=== PATIENT | female | born 1970 | race American Indian/Alaskan Native ===

== ENCOUNTER 2019-03-07 13:24 | Emergency (ER) | payer OTHER ==
--- NOTE | 2019-03-07 14:09 | Event Note ---
ED Screening Note ED Screening Note: pt presents with generalized abd pain that began yesterday morning no N/V/D last BM two days ago no urinary sx PMHx HTN, asthma only allergy: shellfish no abdominal surgeries non smoker non drinker no drug use This initial assessment/diagnostic orders/clinical plan/treatment(s) is/are subject to change based on patients health status, clinical progression and re- assessment by fellow clinical providers in the ED. Further treatment and workup at subsequent clinical providers discretion. Patient/guardian urged not to elope from the ED as their condition may be serious if not clinically assessed and managed. Initial orders include: labs, UA, urine preg
[2019-03-07 14:12] VITALS: BP 130/86
[2019-03-07 14:41] LABS: HCG Qualitative,Urine Negative (Negative)
[2019-03-07 14:42] LABS: Bacteria,Urine 1+ /HPF (Negative); Bilirubin,Urine NEG (Negative); Blood,Urine NEG (Negative); Hyaline Casts,Urine 3 /LPF; Mucus,Urine 3+ /HPF; Protein,Urine <15 mg/dL mg/dL (Negative); Urobilinogen,Urine < 2.0 mg/dL (<2.0)
[2019-03-07 14:43] LABS: Color,Urine Yellow (Yellow)
[2019-03-07 15:25] LABS: Basophils # (Auto) 0.1 K/mm3 (0.0-0.1); Basophils % (Auto) 1.4 % (0.0-1.8); Eosinophils # (Auto) 0.4 K/mm3 (0.0-0.4); Eosinophils % (Auto) 8.2 % (0.0-4.3); Hematocrit 40.7 % (30.3-42.9); Lymphocytes # (Auto) 1.6 K/mm3 (1.2-5.4); Lymphocytes % (Auto) 35.5 % (13.4-35.0); Mean Corpuscular HGB Conc 34 % (30-34); Mean Corpuscular Volume 94 fl (79-97); Monocytes # (Auto) 0.4 K/mm3 (0.0-0.8); Monocytes % (Auto) 9.5 % (0.0-7.3); Platelet Count 239 K/mm3 (140-440); Red Blood Count 4.34 M/mm3 (3.65-5.03); Red Cell Distribution Width 13.6 % (13.2-15.2)
[2019-03-07 15:47] LABS: Alanine Aminotransferase 10 units/L (7-56); BUN/Creatinine Ratio 19; Blood Urea Nitrogen 13 mg/dL (7-17); Calcium 10.1 mg/dL (8.4-10.2); Hemolysis Index 33
--- NOTE | 2019-03-07 16:14 | Emergency Department Report ---
ED Abdominal Pain HPI - General Chief Complaint: Abdominal Pain Stated Complaint: ABDOMINAL PAIN/DIFFICULTY BREATHING Time Seen by Provider: 03/07/19 14:06 Source: patient Mode of arrival: Ambulatory Limitations: No Limitations - History of Present Illness Initial Comments: 48 year old -[place] female presents to the emergency room for diffuse a bdominal pain that is intermittent with some shortness of breath since Thursday. Patient reports that he started yesterday morning she has been passing gas she hasn't been able to eat much as she's had a decrease in appetite. Patient reports that she took 3 powders which she says helps a little bit but the pain will come back. Patient denies any urinary symptoms last menstrual period was in December she feels that she is going through menopause. She has a past medical history of hypertension currently on lisinopril amlodipine she has an allergy to shellfish. Her primary care provider is Dr. Meadows. She does admit to being sexually active unprotected on Thursday. MD Complaint: abdominal pain Onset/Timin -: days(s) Location: diffuse Radiation: none Migration to: no migration Severity scale (0 -10): 5 Quality: aching Consistency: constant Improves With: medication (Goody powders) Worsens With: movement Associated Symptoms: denies other symptoms - Related Data Home Medications Medication Instructions Recorded Confirmed Last Taken Lisinopril 10 mg PO DAILY 01/14/19 01/17/19 01/17/19 amLODIPine 10 mg PO DAILY 01/14/19 01/17/19 01/17/19 ProAir HFA Inhaler 2 puff INHALATION PRN PRN 01/17/19 01/17/19 01/14/19 Previous Rx's Medication Instructions Recorded Last Taken Type Hyoscyamine Subl [Levsin Sl 0.125 0.125 mg SL Q6HR PRN #20 tab 03/07/19 Unknown Rx TAB] Allergies Allergy/AdvReac Type Severity Reaction Status Date / Time shellfish derived Allergy Unknown Verified 01/14/19 13:48 ED Review of Systems ROS: Stated complaint: ABDOMINAL PAIN/DIFFICULTY BREATHING Other details as noted in HPI Comment: All other systems reviewed and negative ED Past Medical Hx - Past Medical History Hx Hypertension: Yes Hx Liver Disease: No Hx Renal Disease: No Hx Sickle Cell Disease: No Hx Asthma: Yes (preop Albuterol MDI 3 puffs given ) - Social History Smoking Status: Never Smoker Substance Use Type: None - Medications Home Medications: Home Medications Medication Instructions Recorded Confirmed Last Taken Type Lisinopril 10 mg PO DAILY 01/14/19 01/17/19 01/17/19 History amLODIPine 10 mg PO DAILY 01/14/19 01/17/19 01/17/19 History ProAir HFA Inhaler 2 puff INHALATION PRN PRN 01/17/19 01/17/19 01/14/19 History Hyoscyamine Subl [Levsin Sl 0.125 0.125 mg SL Q6HR PRN #20 tab 03/07/19 Unknown Rx TAB] ED Physical Exam - General Limitations: No Limitations General appearance: alert, in no apparent distress - Head Head exam: Present: atraumatic, normocephalic - Eye Eye exam: Present: normal appearance - ENT ENT exam: Present: mucous membranes moist - Neck Neck exam: Present: normal inspection - Respiratory Respiratory exam: Present: normal lung sounds bilaterally. Absent: respiratory distress - GI/Abdominal GI/Abdominal exam: Present: soft, tenderness (suprapubic left lower quadrant). Absent: distended - Back Exam Back exam: Present: normal inspection - Neurological Exam Neurological exam: Present: alert, oriented X3 - Psychiatric Psychiatric exam: Present: normal affect, normal mood - Skin Skin exam: Present: warm, dry, intact, normal color. Absent: rash ED Course Vital Signs 03/07/19 14:10 Temperature 98.6 F Pulse Rate 79 Respiratory 20 Rate Blood Pressure 130/86 O2 Sat by Pulse 100 Oximetry - Reevaluation(s) Reevaluation #1: 03/07/19 17:54 Patient reports that the Levsin has helped with her stomach. ED Medical Decision Making - Lab Data Result diagrams: 03/07/19 15:04 03/07/19 15:04 - Medical Decision Making 48-year-old female comes in for abdominal pain. Labs are all negative wet prep and gonorrhea has been sent with prep is normal. Discussed the patient Akbar her labs are within normal limits. Also discussed the patient that the Levsin that I will discharge her on as she reports this up with her stomach. I discussed the patient to follow up with her primary care provider if symptoms persist or gets worse. Critical care attestation.: If time is entered above; I have spent that time in minutes in the direct care of this critically ill patient, excluding procedure time. ED Disposition Clinical Impression: Abdominal pain Disposition: DC-01 TO HOME OR SELFCARE Is pt being admited?: No Does the pt Need Aspirin: No Condition: Stable Instructions: Abdominal Pain (ED) Additional Instructions: He is taking medication as prescribed and as needed. Follow up with her primary care provider if his symptoms persist or gets worse. Prescriptions: Hyoscyamine Subl [Levsin Sl 0.125 TAB] 0.125 mg SL Q6HR PRN #20 tab PRN Reason: Pain , Severe (7-10) Referrals: GORDY PALUMBO MD [Primary Care Provider] - 3-5 Days Forms: Work/School Release Form(ED)
[2019-03-07] MEDS ORDERED: LEVSIN SL SL ONE (16:50)
== END 2019-03-07 18:10 | disposition home or self-care (01) ==
LOC: ED 13:24
DX: R10.32 Left lower quadrant pain (principal); I10 Essential (primary) hypertension; J45.909 Unspecified asthma, uncomplicated; Z91.013 Allergy to seafood; Z79.899 Other long term (current) drug therapy
CPT/HCPCS: 36415; 80053; 81001; 81025; 83690; 85025; 87210; 87591; 93005; 93010; 99283